=== PATIENT | female | born 1970 | race Two or more races ===

== ENCOUNTER 2022-06-09 10:52 | Outpatient (REF) | payer MEDICAID, OTHER, SELFPAY ==
--- NOTE | ~2022-06-09 | XR_ITS ---
EXAMINATION: XR LUMBOSACRAL SPINE CLINICAL INFORMATION: Ankylosing spondylitis. Back pain COMPARISON: None TECHNIQUE: Three views of the lumbosacral spine. FINDINGS: There is normal lumbar lordosis. The vertebral heights, alignment and disc heights are preserved. No visible acute fracture, dislocation or subluxation seen. There is moderate right L4-L5 facet joint hypertrophy and arthropathy. No aggressive lytic or sclerotic process seen. The paravertebral soft tissues are normal. There is a IUD noted within the pelvis. XR/XR lumbar spine 2-3V IMPRESSION: Moderate right L4-L5 facet joint arthropathy and hypertrophy.
== END 2022-06-09 10:53 | disposition home or self-care (01) ==
LOC: HO.XRAY 10:52
PROVIDERS: PCP Student in an Organized Health Care Education/Training Program; Visit Provider Internal Medicine
DX: M45.8 Ankylosing spondylitis sacral and sacrococcygeal region (principal)
CPT/HCPCS: 72100

== ENCOUNTER 2022-08-06 10:49 | Outpatient (REF) | payer MEDICAID, OTHER, SELFPAY ==
--- NOTE | ~2022-08-06 | XR_ITS ---
EXAMINATION: XR knee RT 2V CLINICAL INFORMATION: Reason for Exam RT KNEE PAIN COMPARISON: None available at the time of this dictation. TECHNIQUE: frontal, lateral, tunnel and patella sunrise views FINDINGS: BONES: No fracture or dislocation is present. JOINTS: Mild narrowing of medial compartment. Articular surfaces otherwise are smooth. Lateral compartment is preserved. No significant joint effusion. SOFT TISSUE: Normal XR/XR knee RT 2V IMPRESSION: Mild arthritis medial compartment. No joint effusion.
== END 2022-08-06 10:50 | disposition home or self-care (01) ==
LOC: HO.XRAY 10:49
PROVIDERS: PCP Student in an Organized Health Care Education/Training Program; Visit Provider Student in an Organized Health Care Education/Training Program
DX: M25.561 Pain in right knee (principal)
CPT/HCPCS: 73560

== ENCOUNTER 2023-06-16 18:02 | Outpatient (REF) | payer MEDICAID, SELFPAY | END 2023-06-16 18:03 | disposition home or self-care (01) | LOC: HO.HHCLNP 18:02 | PROVIDERS: Visit Provider Family Medicine | DX: R10.9 Unspecified abdominal pain (principal) | CPT/HCPCS: 87086 ==

== ENCOUNTER 2023-06-30 10:47 | Outpatient (REF) | payer MEDICAID, SELFPAY ==
--- NOTE | ~2023-06-30 | XR_ITS ---
EXAMINATION: XR CERVICAL SPINE CLINICAL INFORMATION: Neck pain COMPARISON: None available. TECHNIQUE: 5 views of the cervical spine FINDINGS: The tip of the odontoid is obscured on the open-mouth view. There is no fracture. Prevertebral soft tissues are within normal limits. There is straightening of the usual cervical lordosis which can be seen with muscle spasm or be due to patient positioning. There is mild retrolisthesis of C5 respect to C6. There is disc space narrowing and marginal osteophyte formation at C5-C6. The neural foramina are patent. XR/XR cervical spine 5V IMPRESSION: 1. Degenerative disc disease at C5-C6 with mild retrolisthesis of C5 respect to C6. 2. Straightening of the usual cervical lordosis which can be seen with muscle spasm or be due to patient positioning.
== END 2023-06-30 10:48 | disposition home or self-care (01) ==
LOC: HO.XRAY 10:47
PROVIDERS: PCP Student in an Organized Health Care Education/Training Program; Visit Provider Student in an Organized Health Care Education/Training Program
DX: M54.2 Cervicalgia (principal)
CPT/HCPCS: 72050

== ENCOUNTER 2023-07-01 09:19 | Outpatient (REF) | payer MEDICAID, OTHER, SELFPAY ==
[2023-07-01 15:13] LABS: Alanine Aminotransferase 41 U/L (0-31); Albumin Level 4.2 g/dL (3.5-5.0); Alkaline Phosphatase 76 U/L (39-117); Anion Gap 11 (12-20); Aspartate Amino Transferase 26 U/L (5-31); Bilirubin Direct 0.2 mg/dL (0.0-0.5); Bilirubin Total 0.7 mg/dL (0.0-1.0); Blood Urea Nitrogen 18 mg/dL (9-16); Calcium 9.5 mg/dL (8.4-10.2); Carbon Dioxide 25 mmol/L (22-29); Chloride 108 mmol/L (96-108); Cholesterol 188 mg/dL (<200); Estimated Glomerular Filt Rate > 60; Glucose Fasting 86 mg/dL (60-99); HDL Cholesterol 39 mg/dL (>40); LDL Cholesterol Calculated 126 mg/dL (<100); Sodium 140 mmol/L (135-145); Total Protein 7.1 g/dL (6.5-8.0); Triglycerides 115 mg/dL (<150)
[2023-07-01 15:30] LABS: Thyroid Stimulating Hormone 0.87 uIU/mL (0.32-4.0); Vitamin D 25-OH Total 86.3 ng/mL (>30)
== END 2023-07-01 09:20 | disposition home or self-care (01) ==
LOC: HO.CHCLDS 09:19
PROVIDERS: Visit Provider Student in an Organized Health Care Education/Training Program
DX: R74.8 Abnormal levels of other serum enzymes (principal); E55.9 Vitamin D deficiency, unspecified; R10.9 Unspecified abdominal pain
CPT/HCPCS: 36415; 80048; 80061; 80076; 82306; 84443; 87086

== ENCOUNTER 2024-07-03 17:28 | Outpatient (REF) | payer MEDICAID, OTHER, SELFPAY ==
[2024-07-03 18:16] LABS: Influenza A PCR NEGATIVE (Negative); Influenza B PCR NEGATIVE (Negative); Resp Syncy Virus RNA Qual PCR NEGATIVE (Negative); SARS COV2 PCR INHOUSE NEGATIVE (Negative)
== END 2024-07-03 17:29 | disposition home or self-care (01) ==
LOC: HO.CHCLNP 17:28
PROVIDERS: Visit Provider Internal Medicine
DX: R05.1 Acute cough (principal)
CPT/HCPCS: 0241U

== ENCOUNTER 2024-07-04 10:45 | Outpatient (REF) | payer MEDICAID, OTHER, SELFPAY ==
--- NOTE | ~2024-07-04 | XR_ITS ---
EXAMINATION: XR CHEST CLINICAL INFORMATION: Acute cough, fever, pleuritic chest pain, patient states cough and left upper chest. COMPARISON: None available. TECHNIQUE: 2 views of the chest were obtained. FINDINGS: Heart size is normal. There is no gross pneumothorax. Pleural effusion. Moderate degenerative changes in the thoracic spine. Tubular, vertically aligned structure overlies the lateral aspect of the right lung, possibly external to the patient, possibly anterior. Correlation with clinical exam recommended to determine significance. No focal consolidation. XR/XR chest 2V IMPRESSION: Tubular, vertically aligned structure overlies the lateral aspect of the right lung, possibly external to the patient, possibly anterior. Correlation with clinical exam recommended to determine significance. No focal consolidation. This study was presented today to July 04, 2024 for interpretation. Stat results provided at this time as requested by referring provider. Electronically signed by: Lauren Trevino MD 07/04/2024 01:19 PM KLAUS
== END 2024-07-04 10:46 | disposition home or self-care (01) ==
LOC: HO.XRAY 10:45
PROVIDERS: PCP Student in an Organized Health Care Education/Training Program; Visit Provider Internal Medicine
DX: R05.1 Acute cough (principal)
CPT/HCPCS: 71046

== ENCOUNTER 2024-11-29 09:16 | Outpatient (REF) | payer MEDICAID, OTHER, SELFPAY ==
--- OUTSIDE RECORDS SUMMARY | 2024-11-29 09:48 | XMS_ITS | Encounter Summary ---
Author Organization [employer] Address [address] [place] [address] [address] [place] [address] Care Team Providers Care Stage Rigger Name Role Phone Kamini Cagle MD Primary Care Provider [phone] Reason for Referral * Consultation (Routine) - Pending Review Specialty Diagnoses / Procedures Referred By Sarah romero Referred To Contact Obstetrics and Gynecology Diagnoses Vaginal bleeding Den Zhang MD [address] [place] [address] Phone: tel: fax: Referral ID Status Reason Start Date Expiration Date Visits Requested Visits Authorized [id number] Pending Review Specialty Services Required 11/28/2024 11/28/2025 1 1 Reason for Visit * Reason Comments Vaginal Bleeding Encounter Details Date Type Department Care Team ([facility] Contact Info) Description 11/28/2024 2:15 PM EDT Office Visit [facility] MED & PEDS [address] [place] [address] Den Zhang MD [address] [place] [address] Gross hematuria (Primary Dx); Glucosuria; Acute cystitis with hematuria; Vaginal bleeding Social History Tobacco Use Types Packs/Day Years Used Date Smoking Tobacco: Every Day Cigarettes Smokeless Tobacco: Never Alcohol Use Standard Drinks/Week Comments Never 0 (1 standard drink = 0.6 oz pur e alcohol) Housing Stability Answer Date Recorded What is your housing situation today? I have eliud colorado 06/30/[address] you li ve. Do you have problems with any of the following? None of the above 06/30/2023 Food Insecurity Answer Date Recorded Within the past 12 months, y ou worried that your food would run out before you got money to buy more: Never True 06/30/2023 Within the past 12 months,th e food you bought just didn't last and you didn't have enough money to get more: Never True Transportation Answer Date Recorded In the past 12 months, has l ack of transportation kept you from medical appts, meetings, work or from getting things needed for daily living? No 06/30/2023 Utilities Answer Date Recorded In the past 12 months, has t he electric, gas, oil or water company threatened to shut off services in your home? No 06/30/2023 Comments No Sex and Gender Information Value Date Recorded Sex Assigned at Female 05/18/2022 10:37 AM EDT Legal Sex Female 10:37 AM EDT Gender Identity Female 05/18/2022 10:37 AM EDT Sexual Orientation Straight 05/18/2022 10 :37 AM EDT documented as of this encounter Last Filed Vital Signs Vital Sign Reading Time Taken Comments Blood Pressure 124/63 11/28/2024 2:23 PM EDT Pulse 67 11/28/2024 2:23 PM EDT Temperature 36.7 ??C (98 ??F) 11/28/2024 2:23 PM EDT Respiratory Rate 20 11/28/2024 2:23 PM EDT Oxygen Saturation 98% 11/28/2024 2:23 PM EDT Inhaled Oxygen Concentration - - Weight 81.6 kg (180 lb) 11/28/2024 2:23 PM EDT Height 160.7 cm (5' 3.25 ) 11/28/2024 2:23 PM ED T Body Mass Index 31.63 11/28/2024 2:23 PM EDT documented in this encounter Progress Notes * Den Zhang MD - 11/28/2024 2:15 PM EDT SUBJECTIVE Lynn Castro is a 54 y.o. female who presents for Vaginal Bleeding. Vaginal Bleeding The patient's pertinent negatives include no genital itching, genital lesions or genital odor. Thisis a new problem. The current episode started in the past 7 days. Associated symptoms include hematuria. Pertinent negatives include no abdominal pain, anorexia, back pain, chills, constipation, diarrhea, discolored urine, dysuria, fever, flank pain, frequency, headaches, joint pain, joint swelling, nausea, painful intercourse, rash, sore throat, urgency or vomiting. Note from triage reviewed: Called pt. via [employer] cash on delivery clerk Aamir [phone]. Pt. States that she has not had her menses x 1 year. Pt. States that she has been bleeding from vaginal area x 1 week and also pain with urination. Pt. States that she has been having heavy flow of blood from vagina. That she needs to use pads. Pt states she had an implant IUD removed in December last year. Pt. Denies any stomach pain and only has pain when she is urinating. Pt. States she feels a mild burning sensation when she is done urinating as well and has the feeling of having to continue urinating with no more urine coming out. ' History confirmed. Patient Active Problem List Diagnosis Blurry vision, bilateral Vitamin D deficiency Arthritis, lumbar spine Ankylosing spondylitis (CMS/HCC) Backache Depressive disorder Insomnia Flank pain No Known Allergies Current Outpatient Medications on File Prior to Visit Medication Sig Dispense Refill bisoprolol (Zebeta) 5 MG tablet take 1/2 tablet by oral route every day cholecalciferol (Vitamin D-3) 50 MCG (1999 UT) capsule Take 1 capsule (50 mcg) by mouth Once per day. 30 capsule 11 lidocaine (Lidoderm) 5 % patch Place 1 patch on the skin at bed time. Lidoderm 5 % patch APPLY 1 PATCH TO SKIN. LEAVE ON FOR 12 HOURS, THEN OFF FOR 12 HOURS DIRECTED. Omeprazole 20 MG tablet delayed-release Take 1 tablet (20 mg) by mouth 2 times daily. 180 tablet 3 pseudoephedrine (Sudafed) 30 MG tablet Take 1 tablet (30 mg) by mouth 3 times daily for 10 days. 30tablet 0 No current facility-administered medications on file prior to visit. Review of Systems Constitutional: Negative for appetite change, chills, diaphoresis and fever. HENT: Negative for sore throat. Respiratory: Negative for cough, choking and shortness of breath. Cardiovascular: Negative for palpitations and leg swelling. Gastrointestinal: Negative for abdominal pain, anorexia, constipation, diarrhea, nausea and vomiting. Genitourinary: Positive for hematuria and vaginal bleeding. Negative for dysuria, flank pain, frequency and urgency. Musculoskeletal: Negative for back pain, joint pain, joint swelling and myalgias. Skin: Negative for pallor and rash. Neurological: Negative for headaches. OBJECTIVE Vitals: 11/28/24 1423 BP: 124/63 BP Location: Left arm Patient Position: Sitting BP Cuff Size: Adult long Pulse: 67 Resp: 20 Temp: 98 ??F (36.7 ??C) TempSrc: Oral SpO2: 98% Weight: 180 lb (81.6 kg) Height: 5' 3.25 (1.607 m) Physical Exam Constitutional: Appearance: Normal appearance. Cardiovascular: Rate and Rhythm: Normal rate. Pulmonary: Effort: Pulmonary effort is normal. Breath sounds: Normal breath sounds. Abdominal: Tenderness: There is no abdominal tenderness. Assessment/Plan Assessment/Plan Diagnoses and all orders for this visit: Gross hematuria - POCT Urinalysis - POCT Glucose - POCT HGB A1C - naproxen (Naprosyn) 500 MG tablet; Take 1 tablet (500 mg) by mouth 2 times daily. - Comprehensive Metabolic Panel; Future - Lipid Panel, Standard; Future - TSH W/Reflex to FT4; Future - CBC auto differential; Future Glucosuria - POCT Urinalysis - POCT Glucose - POCT HGB A1C - naproxen (Naprosyn) 500 MG tablet; Take 1 tablet (500 mg) by mouth 2 times daily. - Comprehensive Metabolic Panel; Future - Lipid Panel, Standard; Future - TSH W/Reflex to FT4; Future - CBC auto differential; Future Acute cystitis with hematuria Comments: Advised to push fluids Medication as directed Follow up in 1 week if still symptomatic. Orders: - POCT Urinalysis - POCT Glucose - POCT HGB A1C - nitrofurantoin, macrocrystal-monohydrate, (Macrobid) 100 MG capsule; Take 1 capsule (100 mg) by mouth 2 times daily for 7 days. - Culture, Urine, Routine; Future Vaginal bleeding - Referral to Obstetrics / Gynecology; Future documented in this encounter Plan of Treatment Upcoming Encounters Date Type Department Care Team (Late st Contact Info) Description 03/14/2025 10:15 AM EDT Office Visit [facility] CH[facility] MED & PEDS [address] [place] [address] Kamini Cagle MD [address] [place] [address] Scheduled Orders Name Type Priority Associated Diagnoses Orde r Schedule Culture, Urine, Routine Microbiology Routine Acute cystitis with hematuria Expected: 11/28/2024 (Approximate), Expires: 11/28/2025 Comprehensive Metabolic Panel Lab Routine Gross hematuria Glucosuria Expected: 11/28/2024 (Approximate), Expires: 11/28/2025 Lipid Panel, Standard Lab Routine Gross hematuria Glucosuria Expected: 11/28/2024 (Approximate), Expires: 11/28/2025 TSH W/Reflex to FT4 Lab Routine Gross hematuria Glucosuria Expected: 11/28/2024 (Approximate), Expires: 11/28/2025 CBC auto differential Lab Routine Gross hematuria Glucosuria Expected: 11/28/2024 (Approximate), Expires: 11/28/2025 Scheduled Referrals Name Type Priority Associated Diagnoses Order Schedule Referral to Obstetrics / Gynecology Outpatient Referral Routine Vaginal bleeding Expected: 11/28/2024 (Approximate), Expires: 11/28/2025 documented as of this encounter Procedures Procedure Name Priority Date/Time Associated Diagnosis Comments POCT URINALYSIS DIPSTICK Routine 11/28/2024 3:20 PM EDT Gross hematuria Glucosuria Acute cystitis with hematuria POCT GLYCATED HEMOGLOBIN, TOTAL Routine 11/28/2024 3:19 PM EDT Gross hematuria Glucosuria Acute cystitis with hematuria POCT GLUCOSE Routine 11/28/2024 3:18 PM EDT Gross hematuria Glucosuria Acute cystitis with hematuria documented in this encounter Results * (ABNORMAL) POCT Urinalysis (11/28/2024 3:20 PM EDT) Color, UA Yellow Clarity, UA Clear Glucose, UA Many Comment:100mg/dL Bilirubin, UA Moderate Ketones, UA Positive Comment:15mg/dL Spec Grav, UA 1.030 Blood, UA Positive(A) Negative, None Detected Comment:large pH, UA 5.5 Protein, UA Many Comment:300mg/dL Urobilinogen, UA 1.0 Leukocytes, UA Many(A) Negative, Rare, Trace Comment:large Nitrite, UA Negative Negative, None Detected Appearance, UA clear QC Media Lot # [id number] Lot# Expiration Date 93,025 Urine 11/28/2024 3:20 PM EDT Den Zhang MD POINT OF CARE TEST ENTER/ED IT ORDERABLES Final Result * POCT HGB A1C (11/28/2024 3:19 PM EDT) Hemoglobin A1C 5.5 4.0 - 6.0 % QC Media Lot # [id number] Lot# Expiration Date 1,227 Blood 11/28/2024 3:19 PM EDT Den Zhang MD POINT OF CARE TEST ENTER/ED IT ORDERABLES Final Result * POCT Glucose (11/28/2024 3:18 PM EDT) Glucose Blood, POC 136 60 - 200 mg/dL QC Media Lot # [id number] Lot# Expiration Date 91,425 Blood Capillary blood specimen / Unknown 11/28/2024 3:18 PM EDT Den Zhang MD POINT OF CARE TEST ENTER/ED IT ORDERABLES Final Result documented in this encounter Visit Diagnoses Diagnosis Gross hematuria- Primary Glucosuria Glycosuria Acute cystitis with hematuria Vaginal bleeding Other specified noninflammatory disorder of vagina documented in this encounter Care Teams Stage Rigger Relationship Specialty Start Date End Date Kamini Cagle MD [address] [place] [id number] PCP - General Family Medicine 11/20/20 documented as of this encounter
--- OUTSIDE RECORDS SUMMARY | 2024-11-29 09:48 | XMS_ITS | Encounter Summary ---
Author Organization [employer] Address [address] [place] [address] Care Team Providers Care Letterpress Setter Name Role Phone Kamini Cagle MD Primary Care Provider [phone] Reason for Visit * Reason Onset Date Comments Nurse Triage 11/28/2024 Encounter Details Date Type Department Care Team ([facility] st Contact Info) Description 11/28/2024 Telephone [facility] MEDICINE [address] [place] [address] Kamini Cagle MD [address] [place], [place] [phone] Nurse Triage Social History Tobacco Use Types Packs/Day Years [...] AM EDT documented as of this encounter Miscellaneous Notes * Telephone Encounter - Kelley Renyoso RN - 11/28/2024 12:07 PM EDT Called pt. via [employer] tumbler machine operator helper Aamir [phone]. Pt. States that she has not had [...] year. Pt. Denies any stomach pain and onlyhas pain when she is urinating. Pt. States she feels a mild burning sensation when she is done urinating as well and has the feeling of having to continue urinating with no more urine coming out. Protocol Used: Urine - Blood In (Adult) Protocol-Based Disposition: See in Office or Video Visit Today- appt. Given for 215pm today in [facility] for UTI sx. And Pt. Will ask when is a good time to schedule appt. With [facility] for vaginal bleeding that has been present everyday for 8 days. Positive Triage Questions: * Pain or burning with passing urine (urination) * Patient wants to be seen * All higher-acuity triage questions were negative Care Advice Discussed: * Reasons To Call Back * Telephone Encounter - Jessica Nielsen - 11/28/2024 11:45 AM EDT Symptom: Ear bleeding Outcome: Schedule a same-day appointment or talk to a nurse or provider today Reason: Caller denied all higher acuity questions The caller accepted this outcome. [phone] documented in this encounter Plan of Treatment Upcoming Encounters Date Type Department Care Team (Late st Contact Info) Description 03/14/2025 10:15 AM EDT Office Visit [facility] MED & PEDS [address] [place] [address] Kamini Cagle MD [address] [place] [address] documented as of this encounter Visit Diagnoses Not on filedocumented in this encounter Care Teams Letterpress Setter Relationship Specialty Start Date End Date Kamini Cagle MD [address] [place] [id number] PCP - General Family Medicine 11/20/20 documented as of this encounter
--- OUTSIDE RECORDS SUMMARY | 2024-11-29 09:48 | XMS_ITS | Encounter Summary ---
Author Organization [employer] Address [address] [place] [address] Care Team Providers Care Animal Control Specialist Name Role Phone Kamini Cagle MD Primary Care Provider [phone] Reason for Visit * Reason Onset Date Comments Nurse Triage 11/15/2024 Encounter Details Date Type Department Care Team ([facility] st Contact Info) Description 11/15/2024 Telephone [facility] MEDICINE [address] [place] [address] Kamini Cagle MD [address] [place] [address] Nurse Triage Social History Tobacco Use Types [...] encounter Miscellaneous Notes * Telephone Encounter - Valerie Frankel RN - 11/15/2024 9:29 AM EDT Triage call Pt reports cough, nasal congestion since 11/10/24. Pt reports nasal drainage is greenish-yellow, cough is productive. Pt reports tactile fever over the weekend. Pt reports recent blood tinged sputum. Pt reports drinking adequate liquids. Pt is advised to come to [facility] today but, Pt spouse has conflicting apt time. Pt is advised to come to [address] which is open till 8pm for provider to see Pt today. Pt agrees with this and wrote down the address. Advised ifnot seen in [facility] to call in AM for [facility] openings and Pt agrees with this disposition and plan. Ptis advised to continue to drink adequate liquids. Pt insurance is verified as active. Protocol Used: Cough (Adult) Protocol-Based Disposition: See in Office or Video Visit Today Video visit not offered Positive Triage Question: * Coughing up uzair-colored (reddish-brown) or blood-tinged sputum * All higher-acuity triage questions were negative Care Advice Discussed: * Reassurance and Education - Cough * Coughing Spells * Prevent Dehydration * Fever Medicines * Reasons To Call Back * Telephone Encounter - Diaz Villarreal - 11/15/2024 8:57 AM EDT Symptoms: Cough, Runny Nose Outcome: Schedule an appointment to be seen within 24 hours Reason: Caller denied all higher acuity questions The caller accepted this outcome. Contact pt spouse at [phone] documented in this encounter Plan of Treatment Upcoming Encounters Date Type Department Care Team (Late st Contact Info) Description 03/14/2025 10:15 AM EDT Office Visit [facility] CHC MED & PEDS [address] [place] [address] Kamini Cagle MD [address] [place] [address] documented as of this encounter Visit Diagnoses Not on filedocumented in this encounter Care Teams Animal Control Specialist Relationship Specialty Start Date End Date Kamini Cagle MD [address] [place] [phone] PCP - General Family Medicine 11/20/20 documented as of this encounter
--- OUTSIDE RECORDS SUMMARY | 2024-11-29 09:48 | XMS_ITS | Encounter Summary ---
Author Organization [employer] Address [address] [place] [address] Care Team Providers Care Certified Retinal Angiographer Name Role Phone Kamini Cagle MD Primary Care Provider [phone] Reason for Visit * Reason Onset Date Comments Referral 08/25/2024 Encounter Details Date Type Department Care Team ([facility] st Contact Info) Description 08/25/2024 Telephone [facility] MEDICINE [address] [place] [address] Kmaini Cagle MD [address] [place], [place] [phone] Referral Social History Tobacco Use Types Packs/Day Years [...] encounter Miscellaneous Notes * Telephone Encounter - Wing Isa RN - 08/25/2024 9:33 AM EST Please advise, tc to Isaiah Reece, she stated code should be changed to repeat colonoscopy to be cleared on what the pt was to be seen for so they could organize it's priority. * Telephone Encounter - Jessica Nielsen - 08/25/2024 8:43 AM EST Tc from [place] with [facility] stating pcp needs to change the dx code of the referral, they will not accept a referral with a denied code. Any questions contact Estrellita Reece. [phone] F. [phone] documented in this encounter Plan of Treatment Upcoming Encounters Date Type Department Care Team (Late st Contact Info) Description 03/14/2025 10:15 AM EDT Office Visit [facility] MED & PEDS [address] [place] [address] Kamini Cagle MD [address] [place] [address] documented as of this encounter Visit Diagnoses Not on filedocumented in this encounter Care Teams Certified Retinal Angiographer Relationship Specialty Start Date End Date Kamini Cagle MD [address] [place] [phone] PCP - General Family Medicine 11/20/20 documented as of this encounter
--- OUTSIDE RECORDS SUMMARY | 2024-11-29 09:48 | XMS_ITS | Clinical Summary ---
Author Organization [employer] Address [address] [facility] [address] [place] [address] Care Team Providers Care Mechanic Insulator Name Role Phone Kamini Cagle MD Primary Care Provider [phone] Allergies No known active allergies Medications bisoprolol (Zebeta) 5 MG tablet take 1/2 tablet by oral route every day 10/29/2020 Active Lidoderm 5 % patch APPLY 1 PATCH TO SKIN. LEAVE ON FOR 12 HOURS, THEN OFF FOR 12 HOURS DIRECTED. 06/08/2022 Active lidocaine (Lidoderm) 5 % patch Place 1 patch on the skin at bed time. 06/08/2022 Active pseudoephedrine (Sudafed) 30 MG tablet Take 1 tablet (30 mg) by mouth 3 times daily for 10 days. 30 tablet 08/09/2024 Active Omeprazole 20 MG tablet delayed-release Take 1 tablet (20 mg) by mouth 2 times daily. 180 tablet 3 08/09/2024 6 Active cholecalciferol (Vitamin D-3) 50 MCG (1999 UT) capsule Take 1 capsule (50 mcg) by mouth Once per day. 30 capsule 11 08/09/2024 6 Active nitrofurantoin, macrocrystal-mo nohydrate, (Macrobid) 100 MG capsuleIndicati ons:Acute cystitis with hematuria Take 1 capsule (100 mg) by mouth 2 times daily for 7 days. 14 capsule 11/28/2024 5 Active naproxen (Naprosyn) 500 MG tabletIndicatio ns:Gross hematuria,Gluco suria Take 1 tablet (500 mg) by mouth 2 times daily. 20 tablet 11/28/2024 5 Active Active Problems Problem Noted Date Diagnosed Date Flank pain 06/16/2023 Assessment & Plan (06/16/2023 3:24 PM EST): Acute on chronic issue, ddx worsening of her lumbar back pain vs. Kidney involvement. UA dipstick nl, no CVAT, no other signs, will send urine to culture. Will send X ray. F/up with PCP setup to discuss her chronic issues. Vitamin D deficiency 06/30/2022 Arthritis, lumbar spine 06/30/2022 Blurry vision, bilateral 06/24/2022 Assessment & Plan (06/24/2022 4:34 PM EST): Patient reports that for the last 5 months she has been having worsen vision and reports she sees like cob-webs in her vision, Optometry referral place and [facility] Ankylosing spondylitis 06/08/2022 Backache 06/08/2022 06/16/2023 Depressive disorder 06/08/2022 06/16/2023 Insomnia 06/08/2022 06/16/2023 Encounters Date Type Department Care Team Description 11/28/2024 2:15 PM EDT Office Visit [facility] [address] [place] [address] Den Zhang MD Gross hematuria (Primary Dx); Glucosuria; Acute cystitis with hematuria; Vaginal bleeding 11/28/2024 Travel 11/28/[address] [facility] [address] [place] [id number] Kamini Cagle MD Nurse Triage 11/15/[address] [facility] [address] [place] [address] Kamini Cagle MD Nurse Triage from Last 3 Months Social History Tobacco Use Types Packs/Day Years Used Date Smoking Tobacco: Every Day Cigarettes Smokeless Tobacco: Never Tobacco Cessation:Ready to Q uit: Not Asked; Counseling Given: Not Answered Alcohol Use Standard Drinks/Week Comments Never 0 [...] Orientation Straight 05/18/2022 10 :37 AM EDT Last Filed Vital Signs Vital Sign Reading [...] Mass Index 31.63 11/28/2024 2:23 PM EDT Plan of Treatment Upcoming Encounters Date Type Department Care Team (Late st Contact Info) Description 03/14/2025 10:15 AM EDT Office Visit [facility] [address] [place] [address] Kamini Cagle MD [address] [place] [address] Health Maintenance Due Date Last Done Comments CT Colonography 1968 Colonoscopy 1968 Colorectal Cancer Screening 1968 Depression Screening 1968 FIT DNA/Cologuard 1968 FIT 1968 FOBT 1968 HIV Screening 1968 Sigmoidoscopy 1968 Alcohol/Substance Use Screening 1980 DTaP/Tdap/Td Vaccines (1 - Tdap) 11/13/1987 Hepatitis B Vaccines (1 of 3 - 19+ 3-dose series) 11/13/1987 Pneumococcal Vaccine: 50+ Years (1 of 2 - PCV) 11/13/1987 Pap Smear 1989 Cervical Cancer Screening 1998 HPV/Cotest 1998 Mammogram 2008 Zoster Vaccines (1 of 2) 2018 Dental X-Ray: Bitewings 08/05/2023 08/04/2022 Dental Oral Exam 12/16/2023 06/16/2023, 08/04/2022 Dental Prophylaxis 12/16/2023 06/16/2023 COVID-19 Vaccine (1 - 2023-2 5 season) 2024 Influenza Vaccine (#1) 2024 SDOH Screening 06/30/2024 06/30/2023 Dental X-Ray: Full Mouth 08/05/2025 08/04/2022 Tobacco Screening 08/09/2025 08/09/2024 Lipid Panel 07/01/2028 07/01/2023, 06/08/2022, 11/11/2020 RSV Patients and Patients Aged 60 years or older (1 - 1-dose 75+ series) 11/13/2043 Hepatitis C Screening Completed 06/08/2022 HIB Vaccines Aged Out No longer eligi ble based on patient's age to complete this topic HPV Vaccines Aged Out No longer eligi ble based on patient's age to complete this topic Hepatitis A Vaccines Aged Out No long er eligible based on patient's age to complete this topic IPV Vaccines Aged Out No longer eligi ble based on patient's age to complete this topic Meningococcal Vaccine Aged Out No emanuel nayely eligible based on patient's age to complete this topic RSV under 20 months Aged Out No longe r eligible based on patient's age to complete this topic Rotavirus Vaccines Aged Out No longer eligible based on patient's age to complete this topic Procedures Procedure Name Priority Date/Time Associated Diagnosis Comments POCT URINALYSIS DIPSTICK Routine 11/28/2024 3:20 PM EDT Gross hematuria Glucosuria Acute cystitis with hematuria POCT GLYCATED HEMOGLOBIN, TOTAL Routine 11/28/2024 3:19 PM EDT Gross hematuria Glucosuria Acute cystitis with hematuria POCT GLUCOSE Routine 11/28/2024 3:18 PM EDT Gross hematuria Glucosuria Acute cystitis with hematuria LIPID PANEL, STANDARD Routine 07/01/2023 9:23 AM EST Elevated liver enzymes PROPHYLAXIS - ADULT Routine 06/16/2023 8 :00 AM EST PERIODIC ORAL EVALUATION - ESTABLISHED PATIENT Routine 06/16/2023 8:00 AM EST INTRAORAL - COMPLETE SERIES OF RADIOGRAPHIC IMAGES Routine 08/04/2022 3:00 PM EST ZZZ HISTORICAL HEPATITIS C AB W/REFL TO HCV RNA, QN, PCR Routine 06/08/2022 11:53 AM EST from Last 3 Months or Most Recently Relevant to Health Maintenance Results * (ABNORMAL) POCT Urinalysis (11/28/2024 3:20 [...] Media Lot # [id number] Lot# Expiration Date ,025 Urine 11/28/2024 3:20 PM EDT Den Zhang MD POINT OF CARE TEST ENTER/ED IT ORDERABLES Final Result * POCT HGB A1C (11/28/2024 3:19 PM EDT) Hemoglobin A1C 5.5 4.0 - 6.0 % QC Media Lot # [id number] Lot# Expiration Date Blood 11/28/2024 3:1 9 PM EDT Den Zhang MD POINT OF CARE TEST ENTER/ED IT ORDERABLES Final Result * POCT Glucose (11/28/2024 3:18 PM EDT) Glucose Blood, POC 136 60 - 200 mg/dL QC Media Lot # [id number] Lot# Expiration Date 91,425 Blood Capillary blood specimen / Unknown 11/28/2024 3:18 PM EDT Den Zhang MD POINT OF CARE TEST ENTER/ED IT ORDERABLES Final Result * (ABNORMAL) Lipid Panel, Standard (07/01/2023 9:23 AM EST) Triglycerides 115 <150 mg/dL [facility] Comment:Desirable Triglyceri de: less than 150 mg/dLBorderline High Triglyceride 150-199 mg/dLHigh Triglyceride: 200-499 mg/dLVery High Triglyceride: greater than or equal to 5OO mg/dL Cholesterol 188 <200 mg/dL [facility] Comment:Desirable Cholestero l: less than 200 mg/dLBorderline High Cholesterol: 200-239 mg/dLHigh Cholesterol: greater than 239 mg/dL LDL Cholesterol Calculated 126(H) <100 mg/dL [facility] Comment:Desirable LDL: less than 100 mg/dLNear Optimal/Above Optimal LDL: 110- 129 mg/dLBorderline High LDL: 130-159 mg/dLHigh LDL: 160-189 mg/dLVery High LDL: greater than or equal to 190 mg/dL HDL Cholesterol 39(L) >40 mg/dL [facility] Comment:Desirable HDL: great er than 40 mg/dL Note: This HDL assay may give artificially low results in patients with liver disease. Blood Venous blood specimen / Unknown 07/01/2023 9:23 AM EST 07/01/2023 2:39 PM EST us Kamini Cagle MD LAB BLOOD ORDERABLES Final Resul t [facility] [address] [place] [address] [phone] * HEPATITIS C AB W/REFL TO HCV RNA, QN, PCR (06/08/2022 11:53 AM EST) HEPATITIS C ANTIBODY NON-REACTI VE NON-REACT EMIGDIO [facility]VERT[facility] INDEX 0.07 <1.00 [facility] Comment: ?? HCV antibody was non-reactive. There is no laboratory ?? evidence of HCV infection. ?? In most cases, no further action is required. However, if recent HCV exposure is suspected, a test for HCV RNA (test code 37369) is suggested. ?? For additional information please refer to http://education.Fonmatch/faq/QIM36j4 (This link is being provided for informational/ educational purposes only.) ?? 06/08/2022 11:5 3 AM EST us Den Zhang MD HISTORICAL/NON ORDERABLE LA BS Final Result CONVERTED LEGACY LABS from Last 3 Months or Most Recently Relevant to Health Maintenance Insurance [employer] [facility] LIMITED N FULL DENTAL-[facility] MEDICAID LIMITED ADULT DENTAL - HSN FULL (MEDICAID) Care Teams Mechanic Insulator Relationship Specialty Start Date End Date Kamini Cagle MD [address] [place] [id number] PCP - General Family Medicine 11/20/20
--- OUTSIDE RECORDS SUMMARY | 2024-11-29 09:48 | XMS_ITS | Encounter Summary ---
Author Organization [employer] Address [address] [facility] [address] [place] [address] Care Team Providers Care Can Repairer Name Role Phone Kamini Cagle MD Primary Care Provider [phone] Encounter Details Date Type Department Care Team (Latest Contact Info) Description 11/28/2024 Travel Social History Tobacco Use Types Packs/Day Years [...] AM EDT documented as of this encounter Plan of Treatment Upcoming Encounters Date Type Department Care Team (Late st Contact Info) Description 03/14/2025 10:15 AM EDT Office Visit [facility] [address] [place] [address] Kamini Cagle MD [address] [place] [address] documented as of this encounter Visit Diagnoses Not on filedocumented in this encounter Care Teams Can Repairer Relationship Specialty Start Date End Date Kamini Cagle MD [address] [place] [phone] PCP - General Family Medicine 11/20/20 documented as of this encounter
[2024-11-29 14:55] LABS: MANUAL DIFF FLAG NO
[2024-11-29 15:04] LABS: Basophils Absolute Auto 0.1 X10*3/uL (0.0-0.2); Basophils Percent Auto 0.7 % (0-2); Eosinophils Absolute Auto 0.3 X10*3/uL (0.0-0.4); Eosinophils Percent Auto 3.2 % (0-4); Hematocrit 42.9 % (37.0-47.0); Hemoglobin 13.7 g/dl (12.0-16.0); Imm Gran Abs Auto 0.03 X10*3/uL (0.00-0.03); Imm Gran Pct Auto 0.3 % (0.0-0.4); Lymphocytes Percent Auto 42.4 % (20-40); Mean Corpuscular HGB Conc 31.9 g/dl (31.0-35.0); Mean Corpuscular Hemoglobin 28.7 pg (27.0-33.0); Mean Corpuscular Volume 89.9 fL (80.0-98.0); Mean Platelet Volume 11.3 fL (9.4-12.3); Monocytes Percent Auto 10.7 % (2-11); Neutrophils Percent Auto 42.7 % (45-73); Platelet Count 337 X10*3/uL (160-400); Red Blood Count 4.77 X10*6/uL (4.20-5.50); Red Cell Distribution Width 14.1 % (11.0-16.0); White Blood Count 9.4 X10*3/uL (4.8-10.8)
[2024-11-29 15:31] LABS: Alanine Aminotransferase 34 U/L (0-31); Anion Gap 12 (12-20); Aspartate Amino Transferase 28 U/L (5-31); Bilirubin Total 0.4 mg/dL (0.0-1.0); Blood Urea Nitrogen 13 mg/dL (9-16); Calcium 9.1 mg/dL (8.4-10.2); Carbon Dioxide 26 mmol/L (22-29); Chloride 106 mmol/L (96-108); Cholesterol 166 mg/dL (<200); Estimated Glomerular Filt Rate > 60; Glucose Random 104 mg/dL (60-115); HDL Cholesterol 39 mg/dL (>40); LDL Cholesterol Calculated 108 mg/dL (<100); Potassium 4.1 mmol/L (3.3-5.1); Sodium 140 mmol/L (135-145); Total Protein 6.6 g/dL (6.5-8.0); Triglycerides 97 mg/dL (<150)
[2024-11-29 15:46] LABS: TSH reflex Free T4 0.61 uIU/mL (0.32-4.0)
[2024-11-29 16:51] LABS: Alkaline Phosphatase 102 U/L (39-117)
== END 2024-11-29 09:17 | disposition home or self-care (01) ==
LOC: HO.CHCLDS 09:16
PROVIDERS: Visit Provider Internal Medicine
DX: R81 Glycosuria (principal); N30.01 Acute cystitis with hematuria
CPT/HCPCS: 36415; 80053; 80061; 84443; 85025; 87086